=== PATIENT | male | born 1965 | race Caucasian/White ===

== ENCOUNTER 2018-10-24 10:24 | Emergency (ER) | payer BC ==
[2018-10-24] MEDS ORDERED: Ketorolac 60 MG/2 ML SDV IM ONE (10:30)
--- NOTE | 2018-10-24 10:32 | EDM.PDOC ---
ED HPI GENERAL MEDICAL PROBLEM - General Chief Complaint: General Stated Complaint: PAIN ON LOWER LEFT BACK Time Seen by Provider: 10/24/18 10:28 - History of Present Illness INITIAL COMMENTS - FREE TEXT/NARRATIVE: HISTORY AND PHYSICAL: History of present illness: Patient 53-year-old white male presents with concern of low back pain after having done some lifting at work he states it started on the right side modalities across his lower back he denies history of urolithiasis denies any direct trauma denies numbness weakness incontinence or retention bowel or bladder denies any other complaints. Review of systems: As per history of present illness and below otherwise all systems reviewed and negative. Past medical history: As per history of present illness and as reviewed below otherwise noncontributory. Surgical history: As per history of present illness and as reviewed below otherwise noncontributory. Social history: No reported history of drug or alcohol abuse. Family history: As per history of present illness and as reviewed below otherwise noncontributory. Physical exam: HEENT: Atraumatic, normocephalic, pupils reactive, negative for conjunctival pallor or scleral icterus, mucous membranes moist, throat clear, neck supple, nontender, trachea midline. Lungs: Clear to auscultation, breath sounds equal bilaterally, chest nontender. Heart: S1S2, regular, negative for clicks, rubs, or JVD. Abdomen: Soft, nondistended, nontender. Negative for masses or hepatosplenomegaly. Negative for costovertebral tenderness. Pelvis: Stable nontender. Genitourinary: Deferred. Rectal: Deferred. Extremities: Atraumatic, negative for cords or calf pain. Neurovascular unremarkable. Neuro: Awake, alert, oriented. Cranial nerves II through XII unremarkable. Cerebellum unremarkable. Motor and sensory unremarkable throughout. Exam nonfocal. Back: Patient has some mild paravertebral tenderness at the level of lumbar spine no vertebral body or point tenderness he is able to stand on his toes back on his heels deep tendon reflexes motor and sensory are normal Diagnostics: X-ray lumbar spine urinalysis Therapeutics: Toradol 60 mg IM Impression: #1 low back pain probable muscle skeletal etiology Definitive disposition and diagnosis as appropriate pending reevaluation and review of above. - Related Data Allergies Allergy/AdvReac Type Severity Reaction Status Date / Time No Known Allergies Allergy Verified 10/24/18 10:37 Home Meds: Home Meds . [No Known Home Meds] 04/28/18 [History] Past Medical History HEENT History: Reports: None Cardiovascular History: Reports: Hypertension Other Cardiovascular History: HTN in the past Respiratory History: Reports: None Gastrointestinal History: Reports: Other (See Below) Other Gastrointestinal History: occasional heartburn Genitourinary History: Reports: None Musculoskeletal History: Reports: Fracture Other Musculoskeletal History: hx fx wrist Neurological History: Reports: None Psychiatric History: Reports: None Endocrine/Metabolic History: Reports: None Hematologic History: Reports: None Immunologic History: Reports: None Oncologic (Cancer) History: Reports: None Dermatologic History: Reports: None - Infectious Disease History Infectious Disease History: Reports: Chicken Pox, Mumps - Past Surgical History Head Surgeries/Procedures: Reports: None Dermatological Surgical History: Reports: Other (See Below) Social & Family History - Family History Family Medical History: Noncontributory - Caffeine Use Caffeine Use: Reports: Coffee, Energy Drinks, Soda, Tea ED ROS GENERAL - Review of Systems Review Of Systems: ROS reveals no pertinent complaints other than HPI. ED EXAM, GENERAL - Physical Exam Exam: See Below (dictation) Course - Vital Signs Last Recorded V/S: Last Vital Signs Temp 36.0 C 10/24/18 10:37 Pulse 85 10/24/18 10:37 Resp 16 10/24/18 10:37 BP 138/83 10/24/18 10:37 Pulse Ox 98 10/24/18 10:37 - Orders/Labs/Meds Labs: Laboratory Tests 10/24/18 Range/Units 11:00 Urine Color YELLOW Urine Appearance CLEAR Urine pH 7.5 (5.0-8.0) Ur Specific [place] 1.020 (1.001-1.035) Urine Protein NEGATIVE (NEGATIVE) mg/dL Urine Glucose (UA) NEGATIVE (NEGATIVE) mg/dL Urine Ketones NEGATIVE (NEGATIVE) mg/dL Urine Occult Blood NEGATIVE (NEGATIVE) Urine Nitrite NEGATIVE (NEGATIVE) Urine Bilirubin NEGATIVE (NEGATIVE) Urine Urobilinogen 0.2 (<2.0) EU/dL Ur Leukocyte Esterase NEGATIVE (NEGATIVE) Meds: Medications Discontinued Medications Generic Name Dose Route Start Last Admin Trade Name Freq PRN Reason Stop Dose Admin Ketorolac Tromethamine 60 mg 10/24/18 10:30 10/24/18 10:50 Toradol IM 10/24/18 10:31 60 mg ONETIME ONE Administration Departure - Departure Time of Disposition: 11:37 Disposition: Home, Self-Care 01 Condition: Good ( ) Clinical Impression: Low back pain - Discharge Information Referrals: PCP,None [Primary Care Provider] - Forms: ED Department Discharge Additional Instructions: The following information is given to patients seen in the emergency department who are being discharged to home. This information is to outline your options for follow-up care. We provide all patients seen in our emergency department with a follow-up referral. The need for follow-up, as well as the timing and circumstances, are variable depending upon the specifics of your emergency department visit. If you don't have a primary care physician on staff, we will provide you with a referral. We always advise you to contact your personal physician following an emergency department visit to inform them of the circumstance of the visit and for follow-up with them and/or the need for any referrals to a consulting specialist. The emergency department will also refer you to a specialist when appropriate. This referral assures that you have the opportunity for followup care with a specialist. All of these measure are taken in an effort to provide you with optimal care, which includes your followup. Under all circumstances we always encourage you to contact your private physician who remains a resource for coordinating your care. When calling for followup care, please make the office aware that this follow-up is from your recent emergency room visit. If for any reason you are refused follow-up, please contact the [facility] emergency department at and asked to speak to the emergency department charge nurse. Diclofenac Flexeril as prescribed follow-up primary medical doctor as needed as discussed and return as needed as discussed
--- NOTE | 2018-10-24 11:26 | CR ---
INDICATION: Low back pain. TECHNIQUE: Lumbar spine 3 view. COMPARISON: None FINDINGS: No fracture, significant subluxation or acute osseous abnormality is identified. There are moderate spondylosis changes present and most evident in the lower lumbar spine at the L4-5 and L5-S1 levels. Associated intervertebral disc space narrowing is present at these levels. Minimal scoliotic curvature of the lumbar spine is noted convex right. IMPRESSION: 1. No acute fracture, subluxation or abnormality evident. 2. Chronic changes as discussed above. Dictated by Heron Gomez MD @ Oct 24 2018 11:22AM Signed by Dr. Heron Gomez @ Oct 24 2018 11:25AM
== END 2018-10-24 11:58 | disposition home or self-care (01) ==
LOC: MW.ED 10:24
DX: M54.5 Low back pain (principal); I10 Essential (primary) hypertension; X50.0XXA Overexertion from strenuous movement or load, initial encounter; Y99.0 Civilian activity done for income or pay
CPT/HCPCS: 72100; 81003; 96372; 99284; J1885